=== PATIENT | male | born 1945 | race Hispanic/Latino ===

== ENCOUNTER 2019-01-04 09:44 | Inpatient (IN) | payer OTHER ==
[~2019-01-04] VITALS: Ht 172.7 cm; Wt 108.6 kg
[2019-01-04 16:02] VITALS: BP 136/68
[2019-01-04] MEDS ORDERED: GLUC100019 PO (16:08)
[2019-01-04] MEDS ORDERED: AMLO5TAB9 PO (16:08)
[2019-01-04] MEDS ORDERED: CALC-866 PO (16:08)
[2019-01-04] MEDS ORDERED: TURM500C9 PO (16:08)
[2019-01-04] MEDS ORDERED: LATA2.5D2 OP (16:08)
[2019-01-04] MEDS ORDERED: POTA-79 PO (16:08)
[2019-01-04] MEDS ORDERED: NAPR-1023 PO (16:08)
[2019-01-07] VITALS (24 sets, daily range): BP systolic 95–143; BP diastolic 47–75
--- NOTE | 2019-01-07 07:50 | NUR ---
POTENTIAL FOR INFECTION: SHAVED RIGHT KNEE / LEG PER ANGELO FERNÁNDEZ FOLLOWED BY WIPING WITH MYRIAM: 2% CHLORHEXIDINE GLUCONATE CLOTH PATIENTS PRE-OP SKIN PREP.
[2019-01-07] MEDS ORDERED: CEFAZOLIN SODIUM 1 GM VIAL ONE (08:03)
[2019-01-07] MEDS ORDERED: LACTATED RINGERS 1000ML 1,000 ML IV ONE (08:18)
[2019-01-07] MEDS: CEFAZOLIN SODIUM 1 GM VIAL IVP SCH ×3 (08:25→17:09)
[2019-01-07] MEDS ORDERED: ACETAMINOPHEN EXTRA STRENGTH 500 MG TABLET ONE (08:38)
[2019-01-07] MEDS ORDERED: CELECOXIB 200 MG CAP ONE (08:39)
[2019-01-07] MEDS ORDERED: KETOROLAC TROMETHAMINE 15MG/ML ONE (08:39)
[2019-01-07] MEDS ORDERED: DEXAMETHASONE SOD PHOSPHATE 4 MG/ML 5ML VIAL ONE (08:39)
[2019-01-07] MEDS ORDERED: OXYCODONE HCL 10 MG TAB.SR.12H PO ONE (08:40)
[2019-01-07] MEDS ORDERED: LIDOCAINE PF 2% 5ML ABBOJECT ONE (08:57)
[2019-01-07] MEDS ORDERED: DEXAMETHASONE SOD PHOSPHATE 10MG/ML 1ML VIAL ONE (08:58)
[2019-01-07] MEDS ORDERED: FENTANYL CITRATE PF 50 MCG/1 ML 2ML VIAL ONE ×2 (08:58→10:05)
[2019-01-07] MEDS ORDERED: MIDAZOLAM HCL 1 MG/ML 2ML VIAL ONE (08:58)
[2019-01-07] MEDS ORDERED: ONDANSETRON HCL 4 MG/2 ML VIAL ONE (08:58)
[2019-01-07] MEDS ORDERED: PROPOFOL 10 MG/ML 20ML VIAL IV ONE (08:58)
[2019-01-07] MEDS ORDERED: TRANEXAMIC ACID 1000MG/10ML IV ONE ×2 (09:08→12:04)
[2019-01-07] MEDS ORDERED: GLYCOPYRROLATE 1 MG/5 ML SYRINGE ONE ×2 (09:12→11:51)
[2019-01-07] MEDS ORDERED: EPHEDRINE SULFATE 50 MG/ML AMPULE ONE ×2 (09:16→11:25)
[2019-01-07] MEDS ORDERED: ROCURONIUM 10MG/1ML SYR 10 MG/ML ML ONE (09:19)
[2019-01-07] MEDS ORDERED: NITROGLYCERIN 50 MG/D5% WATER 0 BOT ONE (10:17)
[2019-01-07] MEDS ORDERED: NEOSTIGMINE 5MG/5ML SYR IV ONE (11:51)
[2019-01-07] MEDS ORDERED: TRAMADOL HCL 50 MG TABLET PO PRN (12:00)
[2019-01-07] MEDS: ACETAMINOPHEN EXTRA STRENGTH 500 MG TABLET PO SCH ×2 (12:00→21:06)
[2019-01-07] MEDS ORDERED: POTASSIUM CHLORIDE 20MEQ/100ML 100 ML IV PRN (12:00)
[2019-01-07] MEDS ORDERED: KETOROLAC TROMETHAMINE 15MG/ML IV PRN (12:00)
[2019-01-07] MEDS ORDERED: CALCIUM CARBONATE 500 MG TABLET PO PRN (12:00)
[2019-01-07] MEDS ORDERED: ONDANSETRON HCL 4 MG/2 ML VIAL IVP PRN (12:00)
[2019-01-07] MEDS ORDERED: TEMAZEPAM 15 MG CAPSULE PO PRN (12:00)
[2019-01-07] MEDS ORDERED: FERROUS FUMARATE 324 MG TABLET PO PRN (12:00)
[2019-01-07] MEDS ORDERED: LIDOCAINE HCL-MPF 1% 2ML VIAL IV PRN (12:00)
[2019-01-07] MEDS ORDERED: POTASSIUM CHLORIDE 20 MEQ ERTAB PO PRN (12:00)
[2019-01-07] MEDS ORDERED: DiphenhydrAMINE HCL 50 MG/ML VIAL IVP PRN (12:00)
[2019-01-07] MEDS ORDERED: POTASSIUM CHLORIDE 10% ELIXIR 20 MEQ/15 ML UDCUP PO PRN (12:00)
[2019-01-07] MEDS: OXYCODONE HCL 5 MG TAB PO PRN ×2 (13:24→21:08)
[2019-01-07] MEDS: SODIUM CHLORIDE 0.9% 1000ML 1,000 ML IV SCH ×2 (13:25→21:07)
--- NOTE | 2019-01-07 17:35 | NUR ---
[facility] CM met with pt sleepy at this time, called spouse on facesheet discussed dc plans. As per spouse pt is independent prior to surgery, lives at home w/spouse. Pt has a cane and shower chair. Denies any other equipments/services. Feels safe to go back home, spouse able to assist with transportation and needs as necessary agreeable for [facility], telephone consent obtained JOSE ALBERTO. DC plan to home w/HH and DME. CM to cont to follow up. Addendum: 01/07/19 at 1737 by MERY PARSON LVN CM Amended: Links added.
--- NOTE | 2019-01-07 17:38 | NUR ---
CM Note: [facility] F[facility]ed order, clinicals, [facility] to [facility], confirmation received. Spoke to Vita given heads up, will wait for paperworks and work on pt HH and DME. Pt pending [facility] and [facility] for standard walker and 3 in 1 chair. Primary nurse aware. CM to cont to follow up.
[2019-01-07] MEDS: LATANOPROST 2.5 ML DROPS OP SCH (21:00)
[2019-01-07] MEDS: TAMSULOSIN HCL 0.4 MG CAP.ER.24H PO SCH (21:04)
[2019-01-07] MEDS: ASPIRIN 81MG TAB.CHEW PO SCH (21:04)
[2019-01-07] MEDS: FAMOTIDINE 20MG TAB 20 MG TAB PO SCH (21:04)
[2019-01-07] MEDS: PREGABALIN 25 MG CAP PO SCH (21:04)
[2019-01-07] MEDS: AMLODIPINE BESYLATE 5 MG TAB PO SCH (21:06)
[2019-01-07] MEDS: CELECOXIB 200 MG CAP PO SCH (21:06)
--- NOTE | 2019-01-08 | NUR ---
NO VOID PATIENT VOIDING BUT ONLY 20 TO 30 ML AT A TIME. BLADDER SCANNED TO FIND 530 ML OF FLUID. PATIENT CATHETERIZED TO PUT OUT 700 MLS.
[2019-01-08] MEDS: CEFAZOLIN SODIUM 1 GM VIAL IVP SCH (00:28)
[2019-01-08] MEDS: OXYCODONE HCL 5 MG TAB PO PRN ×4 (01:29→20:39)
[2019-01-08 04:00] VITALS: BP 131/68
[2019-01-08] MEDS: ACETAMINOPHEN EXTRA STRENGTH 500 MG TABLET PO SCH ×3 (04:09→20:20)
[2019-01-08] MEDS: SODIUM CHLORIDE 0.9% 1000ML 1,000 ML IV SCH (07:56)
[2019-01-08 08:00] VITALS: BP 139/63
[2019-01-08] MEDS ORDERED: POTASSIUM CHLORIDE 20 MEQ ERTAB PO SCH (09:00)
[2019-01-08] MEDS: FAMOTIDINE 20MG TAB 20 MG TAB PO SCH ×2 (10:28→20:19)
[2019-01-08] MEDS: CELECOXIB 200 MG CAP PO SCH ×2 (10:28→20:19)
[2019-01-08] MEDS: ASPIRIN 81MG TAB.CHEW PO SCH ×2 (10:28→20:19)
[2019-01-08] MEDS: PREGABALIN 25 MG CAP PO SCH ×2 (10:29→20:19)
[2019-01-08] MEDS: POLYETHYLENE GLYCOL 3350 17 GM POWD.PACK PO SCH (10:32)
[2019-01-08 11:14] VITALS: BP 135/59
[2019-01-08] MEDS: TAMSULOSIN HCL 0.4 MG CAP.ER.24H PO SCH ×2 (12:40→20:19)
--- NOTE | 2019-01-08 14:48 | NUR ---
CM Note: [facility] and [facility] CM spoke to Vita bowie/DARA, received clinicals, PT, and order yesterday. Stated currently forwarded to med director, pending to approve and assign HH and DME for standard walker no wheels and 3 in 1 chair. Primary nurse aware. CM to cont to follow up.
[2019-01-08] MEDS: POTASSIUM CHLORIDE 20 MEQ ERTAB PO SCH (15:54)
[2019-01-08 16:00] VITALS: BP 124/63
[2019-01-08 20:08] VITALS: BP 129/73
[2019-01-08] MEDS: AMLODIPINE BESYLATE 5 MG TAB PO SCH (20:19)
[2019-01-08] MEDS: LATANOPROST 2.5 ML DROPS OP SCH (20:21)
[2019-01-09] MEDS: OXYCODONE HCL 5 MG TAB PO PRN (00:03)
[2019-01-09 00:08] VITALS: BP 133/66
[2019-01-09 04:06] VITALS: BP 142/69
[2019-01-09] MEDS: ACETAMINOPHEN EXTRA STRENGTH 500 MG TABLET PO SCH ×2 (04:56→12:00)
[2019-01-09 08:03] VITALS: BP 129/72
[2019-01-09] MEDS ORDERED: BISACODYL 10 MG SUPP.RECT RC ONE (09:16)
[2019-01-09] MEDS: PREGABALIN 25 MG CAP PO SCH (09:22)
[2019-01-09] MEDS: ASPIRIN 81MG TAB.CHEW PO SCH (09:23)
[2019-01-09] MEDS: CELECOXIB 200 MG CAP PO SCH (09:23)
[2019-01-09] MEDS: POTASSIUM CHLORIDE 20 MEQ ERTAB PO SCH (09:23)
[2019-01-09] MEDS: FAMOTIDINE 20MG TAB 20 MG TAB PO SCH (09:23)
[2019-01-09] MEDS: POLYETHYLENE GLYCOL 3350 17 GM POWD.PACK PO SCH (09:24)
--- NOTE | 2019-01-09 10:43 | NUR ---
CM note: [facility] CM spoke to Vita bowie/DARA pt has approval for [facility] for standard wlker no wheels and 3 in 1 chair. Spoke to Kathryn Gay'amparo working on DME to be delivered today. Primary nurse aware. CM to cont to follow up.
[2019-01-09 11:19] VITALS: BP 139/74
[2019-01-09] MEDS ORDERED: ASPI-1005 PO (12:14)
[2019-01-09] MEDS ORDERED: HYDR-4457 PO (12:14)
--- NOTE | 2019-01-09 14:15 | NUR ---
DISCHARGE PRESCRIPTIONS PENDING DISCHARGE PRESCRIPTIONS BY DR. TIM
--- NOTE | 2019-01-09 15:09 | NUR ---
FULL REPORT GIVEN TO KENNY OHARA FULL REPORT ON DR TIM D/C INSTRUCTIONS ALONG WITH DIRECTIONS FOR WOUND CARE [place], 4X4, COVER W [place] NURSE STATES THEY DO NOT HAVE SUPPLIES FOR THE PATIENT SO PATIENT WILL GOWITH SOME SUPPLIES FOR WOUND CARE NURSE AWARE OF FU APPT [facility]WELL AND MEDICATIONS REFERTO D/C SUMMARY
[2019-01-09 16:22] VITALS: BP 138/72
[2019-01-10] MEDS ORDERED: BISACODYL 10 MG SUPP.RECT RC PRN (12:00)
== END 2019-01-09 19:06 | disposition home health service (06) | DRG 470 ==
LOC: DAHIP 01-07 06:41 → 4AH 01-07 11:51 → EDSEX 01-07 15:00
PROVIDERS: ADMIT Orthopaedic Surgery; ATTEND Orthopaedic Surgery
PROC: 0SRC0J9 Replacement of Right Knee Joint with Synthetic Substitute, Cemented, Open Approach (ICD-10-PCS; principal; 2019-01-07 10:02)
PROC: 3E0T3BZ Introduction of Anesthetic Agent into Peripheral Nerves and Plexi, Percutaneous Approach (ICD-10-PCS; 2019-01-07 10:02)
DX: M17.11 Unilateral primary osteoarthritis, right knee (principal); I10 Essential (primary) hypertension; K42.9 Umbilical hernia without obstruction or gangrene; G89.29 Other chronic pain; M23.8X1 Other internal derangements of right knee
CPT/HCPCS: 87641; 88304; 88311; 96374; 96375; 97039; G0378; J0690; J1100; J1885; J2001; J2250; J2405; J2704; J2710; J3010; J3490; J7120

== ENCOUNTER 2019-11-02 13:08 | Emergency (ER) | payer OTHER ==
[~2019-11-02 13:08] MED LIST: AMLO5TAB9 PO; ASPI-1005 PO; CALC-866 PO; GLUC100019 PO; HYDR-4457 PO; LATA2.5D2 OP; NAPR-1023 PO; POTA-79 PO; TURM500C9 PO
[2019-11-02] MEDS ORDERED: ONDANSETRON HCL 4 MG/2 ML VIAL ONE (13:39)
[2019-11-02] MEDS ORDERED: MORPHINE SULFATE 4 MG/1ML SYG ONE (13:39)
[2019-11-02] MEDS ORDERED: HYDROCODONE/ACETAMINOPHEN 10/325 MG TAB ONE (15:20)
== END 2019-11-02 15:28 | disposition home or self-care (01) ==
LOC: EDH 13:08
DX: S42.212A Unspecified displaced fracture of surgical neck of left humerus, initial encounter for closed fracture (principal); I10 Essential (primary) hypertension; Z87.891 Personal history of nicotine dependence; W18.39XA Other fall on same level, initial encounter; Y93.89 Activity, other specified; Y92.89 Other specified places as the place of occurrence of the external cause; Y99.8 Other external cause status
CPT/HCPCS: 73030; 96374; 96375; 99284; J2270; J2405